=== PATIENT | female | born 2000 | race Caucasian/White ===

== ENCOUNTER 2022-10-27 19:28 | Outpatient (CLI) | payer SELFPAY ==
[~2022-10-27] VITALS: Ht 149.9 cm; Wt 65.5 kg
[~2022-10-27 19:28] MED LIST: PRENATAL TABLET PO
[2022-10-27 20:00] VITALS: BP 122/71; PULSE 101; TEMP 97.9
--- NOTE | 2022-10-27 20:00 | NUR ---
1934: Pt transported onto unit via wheelchair, accompanied by significant other. Pt oriented to LDR3 via unit mobile radiation therapy technician. Pt instructed to change into exam gown. 1942: Pt on external monitors x2. VS obtained. Unit mobile radiation therapy technician, Woody ID [id number], Kleverycmaggie agent utilized for communication. POC discussed and assessment obtained from pt. Pt denies vaginal bleeding. Pt states via radiation therapy technician, "I was leaking some clear fluids 8 days ago. It comes and goes. I have not had any sleep in 3 days because I feel pain in my abdomen and lower right side of my stomach." Pt states "I think I am having ctxs but I did not time them so I do not know how far apart they are, sorry." Amnioswab conducted, negative for ARMANI. 1955: SVE, with pt consent and explanation via unit mobile radiation therapy technician, C/H. This nurse noted that gloves and exam were absent of any fluids/discharge.
[2022-10-27 20:30] VITALS: BP 117/79; PULSE 106
[2022-10-27 21:00] VITALS: BP 106/77; PULSE 102
--- NOTE | 2022-10-27 21:00 | NUR ---
2037: Dr. Noel, notified, via phonecall of pt progress. See physician notification for further details. 2047: This nurse at pt bedside utilizing unit mobile career law clerk, Jose Francisco ID [id number]. POC discussed with pt. Dr. Noel has been made aware of pt progress. Tylenol, Tums/Pepcid, and Visteril offered. Pt endorses Tylenol and Visteril. Pt updated on POC. Pt verbalizes, via VoRukukue translater agent, understanding and agreement of POC. Questions, concerns, and needs encouraged. Pt denies questions, concerns, and needs. : Pt off external monitors x2, OOB ambulating to utilize bathroom. 2053: Pt back on external monitors x2. This nurse at pt bedside palpating pt abdomen, attempting to readjust external monitors x2.
[2022-10-27 21:16] LABS: COLLECTION METHOD CLEAN CATCH
[2022-10-27 21:26] LABS: URINE APPEARANCE Clear (CLEAR/HAZY); URINE BLOOD Negative (NEGATIVE); URINE COLOR Yellow (YELLOW); URINE GLUCOSE Negative (NEGATIVE); URINE KETONE Negative (NEGATIVE); URINE NITRATE Negative (NEGATIVE); URINE PROTEIN(semi-quant) Negative (NEGATIVE); URINE UROBILINOGEN 0.2 E.U/dL (0.2-1.0)
[2022-10-27 21:27] LABS: MUCOUS Present (NOT PRESENT); SQUAMOUS EPITHELIAL 0-2 /hpf (0-10); URINE BACTERIA Rare /hpf (NONE SEEN); URINE RBC None Seen /hpf (0-2); URINE WBC 0-2 /hpf (0-2)
[2022-10-27 21:30] VITALS: BP 105/77; PULSE 89
--- NOTE | 2022-10-27 21:30 | NUR ---
2113: This nurse at pt bedside, utilizing unit mobile colorer machine, Lars ID [id number]. Discussed medication with pt. Questions, concerns, needs encouraged. Pt denies questions, concerns, needs. Medication administered at 2117. Pain assessment obtained. Pt scored pain, on a numerical value scale, a "5" out of a 10. Pt describes pain location "in the same area in the right lower part of stomach and abdomen. It comes and goes." POC updated and discussed with pt. Pt verbalizes understanding and agreement of POC.
[2022-10-27 21:46] VITALS: BP 100/74; PULSE 86
--- NOTE | 2022-10-27 21:46 | NUR ---
2131: This nurse at pt bedside utilizing unit mobile information systems security specialist, Trinity ID [id number]. POC discussed with pt. Questions, concerns, and needs encouraged. Pt verbalizes understanding and agreement of POC, via unit mobile information systems security specialist Voyce agent. 2137: SVE, with pt consent and explanation via unit mobile information systems security specialist Voyce agent, C/T/H. 2140: This nurse notified Dr. Noel, via phonecall, of pt progress. See physician notification for further details. 2144: This nurse at pt bedside utilizing unit mobile information systems security specialist, Hernan ID [id number]. POC for DC discusssed with pt. 2145: Pt off external monitors, x2. Pt changed into civilian clothes. POC for DC discussed. Pt verbalizes understanding and agreement of POC for DC. 2213: This nurse at pt bedside utilizing unit mobile information systems security specialist, Mark Kerr ID [id number]. POC for DC discussed with pt. Education on early labor, discomforts of , and vaginal delivery discussed. Pt educated on spotting as a result of SVE from recent labor check visit. Pt also educated on abnormal bleeding and to return to the unit if vaginal bleeding, consistent and persistent ctx, and/or leaking/gushing of fluids occur. Pt educated on keeping all scheduled appointments and to take Tylenol/Benadryl for sleep/pain management PRN, per bottle instructions. Pt DC/health summary and packet handed to pt. Questions, concerns, and needs encouraged. Pt asked "when am I going to have my baby because I am having ctxs." Pt educated on early and active labor as well as what to look out for in signs of early/active labor. More comfort measures discussed with pt. Pt verbalizes understanding and agreement of DC POC with "no" additional questions, concerns, or needs. 2237: Pt ambulated off unit, accompanied by significant other, with DC paperwork and health summary in hand at 2237.
== END 2022-10-27 22:38 | disposition home or self-care (01) ==
LOC: LDRO 19:28
PROVIDERS: Obstetrics & Gynecology
DX: O62.4 Hypertonic, incoordinate, and prolonged uterine contractions (principal); Z3A.38 38 weeks gestation of pregnancy

== ENCOUNTER 2022-11-15 15:35 | Inpatient (IN) | payer SELFPAY ==
[~2022-11-15] VITALS: Ht 149.9 cm; Wt 65.5 kg
--- NOTE | 2022-11-15 18:35 | NUR ---
183- PT PRESENTS TO LDR FOR SCHEDULED INDUCTION OF LABOR WITH CYTOTEC, AMBULATORY TO ROOM LR5, CHANGED INTO GOWN. 1848- EFM X2 APPLIED. PT HAS SOME CONTRACTIONS, NO LEAKING, NO BLEEDING, MOVEMENT NOTED ON MONITOR. SEVERAL INTERPRETERS USED FOR ADMISSION PROCESS. THESE INCLUDE NICK([id number]), YURI([id number]), AND FALLON([id number]). 1919- DR DESAI CALLED CHARTED TO VERIFY INDUCTION ORDERS. 1934- IV SITE TO LEFT WRIST CHARTED, BLOOD DRAWN FOR LAB, LR BOLUS INFUSING. 1944- CONSENTS SIGNED WITH ELECTRIC MULE DRIVER. 1954- PT UP TO BATHROOM BEFORE CYTOTEC PLACEMENT. 1957- PT BACK TO BED AND ON MONITOR. PLAN OF CARE FOR CYTOTEC PROCESS EXPLAINED AND QUESTIONS ANSWERED. ELECTRIC MULE DRIVER USED. PT GIVES CONSENT FOR PROCESS. 1999- SVE BY THIS NURSE 0/0/-3, CYTOTEC PLACED. 2004- NURSING ADMISSION HISTORY AND PHYSICAL COMPLETED. ELECTRIC MULE DRIVER USED. 2009- PT ALREADY FEELS THOUGH HER CONTRACTIONS ARE WORSE. REASSURANCE PROVIDED.
[2022-11-15 19:00] VITALS: BP 124/80; PULSE 86; TEMP 97.6
[2022-11-15 19:35] LABS: BASO % 0.2 % (0.0-2.0); EOS # 0.1 K/mm3 (0.0-0.7); EOS % 0.8 % (0.0-4.0); GRAN # 4.9 K/mm3 (1.4-6.5); GRAN % 56.4 % (42.2-75.2); HEMOGLOBIN 10.9 g/dl (12.5-16.0); LYMPH # 2.9 K/mm3 (1.2-3.4); LYMPH % 33.6 % (20.0-51.0); MEAN CELL VOLUME 88 fl (80.0-100.0); MEAN CORPUSCULAR HEMOGLOBIN 29 pg (27-31); MEAN CORPUSCULAR HGB CONC 33 g/dl (33.0-37.0); MEAN PLATELET VOLUME 10.6 fl (7.4-10.4); MONO # 0.7 K/mm3 (0.1-0.6); MONO % 8.1 % (1.7-9.3); PLATELET COUNT 271 K/mm3 (130-400); REDCELL DISTRIBUTION WIDTH-CV 12.5 % (11.5-14.5)
[2022-11-15 19:38] LABS: HEMATOCRIT 33.3 % (37.0-47.0)
--- NOTE | 2022-11-15 20:30 | NUR ---
2029- LR IFUSION CONTINUED DUE TO INCREASED HEART RATE BASELINE. PT IN LEFT LATERAL POSITION AT THIS TIME. 2039- NURSE AT BEDSIDE. 2124- NURSE AT BEDSIDE, MONITORS ADJUSTED. PT RATES PAIN FROM CONTRACTIONS 03/06. 2134- NURSE AT BEDSIDE, MONITORS ADJUSTED. 2154- NURSE AT BEDSIDE, PULSE OX ON. 2217- PT UP TO BATHROOM, ABLE TO VOID WITHOUT DIFFICULTY. 2220- PT BACK TO BED, EFM ON. 0- PT MOVES TO LL POSITION FOR HER COMFORT.
[2022-11-15 21:00] VITALS: BP 109/65; PULSE 88
[2022-11-15 21:30] VITALS: BP 114/59; PULSE 89
[2022-11-15 22:00] VITALS: BP 102/59; PULSE 83
[2022-11-15 22:30] VITALS: BP 94/56; PULSE 83
--- NOTE | 2022-11-15 23:16 | NUR ---
2316- PT TURNED TO RIGHT TILT DUE TO HEART TONES. PILLOWS FOR COMFORT. 2348- DR DESAI CALLED AND UPDATED CHARTED, ORDERS RECEIVED. 2353- PT UP TO BATHROOM. 2355- PT BACK TO BED AND EFM APPLIED. 2358- DR DESAI CALLS BACK AND GIVES FURTHER ORDERS. 0008- PT UPDATED ON PLAN OF CARE FOR THE REST OF THE NIGHT REGARDING NO MORE INDUCTION MEDICATIONS UNTIL MORNING, MONITORING, FLUID HYDRATION, DIET, AND POSITION CHANGES. QUESTIONS ANSWERED. ADDICTIONS COUNSELOR USED, SHANITA([id number]). 0015- PT POSITIONED IN LEFT TILT WITH PILLOWS FOR COMFORT, CALL LIGHT IN REACH, LIGHTS TURNED DOWN.
[2022-11-16] VITALS (43 sets, daily range): BP systolic 96–148; BP diastolic 53–96; PULSE 71–110; TEMP 97.3–98.4
--- NOTE | 2022-11-16 01:00 | NUR ---
0100- PT RESTING BUT NOT ASLEEP, DENIES NEEDS AT THIS TIME.
--- NOTE | 2022-11-16 02:00 | NUR ---
0200- PT RESTING QUIETLY WITH EYES CLOSED. 0232- PT UP TO BATHROOM, ABLE TO VOID WITHOUT DIFFICULTY.
--- NOTE | 2022-11-16 02:38 | NUR ---
0238- PT BACK TO BED, EFM APPLIED. PT DENIES FURTHER NEEDS AT THIS TIME. 0330- PT RESTING QUIETLY. 0420- PT RESTING QUIETLY. VITALS STABLE. PT DENIES FURTHER NEEDS AT THIS TIME.
--- NOTE | 2022-11-16 05:47 | NUR ---
0547- PT REPORTS INCREASED PAIN AT THIS TIME. PT UP TO BATHROOM AND ABLE TO VOID. 0550- PT BACK TO BED, EFM APPLIED. SVE BY THIS NURSE 0-/-3. UNABLE TO START PITOCIN AT THIS TIME DUE TO NONREACTIVE STRIP.
--- NOTE | 2022-11-16 07:10 | NUR ---
PT UP TO RESTROOM TO VOID. OFF MONITORS. DANICA WITH ANESTHESIA NOTIFIED OF EPIDURAL REQUEST.
--- NOTE | 2022-11-16 07:35 | NUR ---
DANIELA MISHRA AT BEDSIDE TO PERFORM EPIDURAL PLACEMENT. PT IS SITTING UP ON THE SIDE OF THE BED. EFM DIFFICULT TO TRACE D/T PATIENT POSITIONING. 0735: SINGLE SHOT ADMINISTERED PER DANIELA MISHRA. PT TOLERATING PROCEDURE. VSS.
[2022-11-16 09:16] LABS: TRICYCLIC ANTIDEPRESS URINE NEGATIVE
--- NOTE | 2022-11-16 12:40 | NUR ---
AT BEDSIDE, SVE UNCHANGED, /-2. INTOLERANCE TO LABOR WHILE PITOCIN IS INFSUSING. PITOCIN CURRENTLY OFF. VIA INTERPRETOR SERVICE, AND PT DECIDE TO MOVE FORWARD WITH SECTION FOR INTOLERANCE TO LABOR. SPOUSE AT BEDSIDE AND SUPPORTIVE. ALL APPROPRIATE STAFF NOTIFIED. PT TO OR FOLLOWING PRE-OP PREP. 1316: CSECTION DELIVERY OF VIABLE FEMALE PER . STRONG CRY NOTED AT DELIVERY. CARE OF ASSUMED BY NELLI GOMEZ. PT TOLERATING PROCEDURE WELL. PROFESSIONAL INTERPRETOR USED THROUGHOUT SURGERY.
--- NOTE | 2022-11-16 19:00 | NUR ---
THIS NURSE IN TO MOTHER'S ROOM TO EDUCATE MOTHER ON PLAN OF CARE FOR THE EVENING VIA STOKER ERECTOR. MOTHER VERBALIZED UNDERSTANDING AND QUESTIONS ANSWERED.
--- NOTE | 2022-11-16 21:50 | NUR ---
MOTHER UP OOB AND TO BATHROOM WITH THE ASSISTANCE OF THIS NURSE AND SUPPORT PERSON IN THE ROOM. STEADY GAIT NOTED. BLACKWELL CATHETER REMOVED. NESTOR CARE AND CLEAN GOWN PROVIDED TO PATIENT. EPIDURAL STILL IN PATIENT'S BACK AT THIS TIME. TAPE REMOVED AND EPIDURAL REMVOED BY THIS RN. BLUE TIP INTACT. BANDAID PLACED OVER SITE. MOTHER AMBULATED STEADILY BACK TO BED. MOTHER RESTING AT THIS TIME.
[2022-11-17] VITALS: BP 113/62; PULSE 102; TEMP 98.3
[2022-11-17 04:15] VITALS: BP 110/72; PULSE 98; TEMP 97.9
[2022-11-17 08:00] VITALS: BP 128/68; PULSE 88; TEMP 97.8
--- NOTE | 2022-11-17 09:08 | NUR ---
Initial visit attempt; Family watching film, Racing Board Marker left card offering congratulations and God's blessings for the of their daughter along with information regarding the availability of Spiritual Care at [facility].
[2022-11-17] MEDS ORDERED: IBU600 MG PO (09:24)
[2022-11-17] MEDS ORDERED: ROXICODONE 55 MG/TAB PO (09:24)
--- NOTE | 2022-11-17 14:46 | NUR ---
Assembler [employer] Head utilized sales vice president services with sales vice president # [phone] to communicate to the Patient in Belarusian. Assembler [employer] Wood [employer] met with Patient in order to conduct Care Managment Assessment and discuss social concerns. Patient and her [place] [facility] in June of 2022 with temporary approval to work in the country. Patient has late care due to the [place] to the [place] Patient reports to live in [place], [place] with her partner and two other roommates. Patient has a carseat but no other equipment for the child. Assembler Golf Wood Head provided the Patient with [facility] resource guide and briefed them that there are resource agencies on the list that will potentially help with equipment needs. SW attempted to contact [facility] [employer] office to ensure communication and resource managment was provided to Patient and her family. There was no answer, GITA left a voicemail requesting callback.
[2022-11-17 17:14] VITALS: BP 118/68; PULSE 85; TEMP 97.8
[2022-11-17 20:30] VITALS: BP 117/70; PULSE 89; TEMP 97.5
[2022-11-18 07:00] VITALS: BP 117/74; PULSE 99; TEMP 98.2
--- NOTE | 2022-11-18 09:54 | NUR ---
Late Entry for 11-17-22 Human Resources Benefits Manager collaborated with Nursing staff to address positive illicit substances for cord blood on of child. Due to Patient being negative for substances as well as the timing of birthing medications, there is no concern for illicit substance use during .
--- NOTE | 2022-11-23 16:02 | NUR ---
Financial Market Dealer was made aware that Patient did not attend 10-day check up for her child on the 21 of November. SW attempted to contact Patient to review potential barriers such as transportation. Financial Market Dealer attempted to contact Patient by phone utilizing coil strapper services, coil strapper #[id number]. Patient did not answer, voicemail was not established. SW will follow.
== END 2022-11-18 14:49 | disposition home or self-care (01) | DRG 788 ==
LOC: OB 15:35 → LDR 18:30 → OB 11-16 13:00
PROVIDERS: ADMIT Obstetrics & Gynecology
PROC: 3E0P7VZ Introduction of Hormone into Female Reproductive, Via Natural or Artificial Opening (ICD-10-PCS; 2022-11-15)
PROC: 10D00Z1 Extraction of Products of Conception, Low, Open Approach (ICD-10-PCS; principal; 2022-11-16)
PROC: 3E033VJ Introduction of Other Hormone into Peripheral Vein, Percutaneous Approach (ICD-10-PCS; 2022-11-16)
DX: O48.0 Post-term pregnancy (principal); Z37.0 Single live birth; O62.0 Primary inadequate contractions; O76 Abnormality in fetal heart rate and rhythm complicating labor and delivery; O99.344 Other mental disorders complicating childbirth; F32.A Depression, unspecified; Z3A.40 40 weeks gestation of pregnancy
CPT/HCPCS: J0690; J1100; J1885; J2401; J2405; J2590; J7120

== ENCOUNTER 2022-12-15 23:29 | Emergency (ER) | payer SELFPAY ==
[~2022-12-15] VITALS: Ht 165.1 cm; Wt 59.5 kg
[~2022-12-15 23:29] MED LIST changes: +IBU600 MG PO; +ROXICODONE 55 MG/TAB PO
[2022-12-15 23:35] VITALS: TEMP 97.7
[2022-12-15 23:55] LABS: BASO % 0.5 % (0.0-2.0); EOS # 0.2 K/mm3 (0.0-0.7); EOS % 2.3 % (0.0-4.0); GRAN # 2.9 K/mm3 (1.4-6.5); GRAN % 38.7 % (42.2-75.2); HEMOGLOBIN 11.6 g/dl (12.5-16.0); LYMPH # 3.9 K/mm3 (1.2-3.4); LYMPH % 51.8 % (20.0-51.0); MEAN CELL VOLUME 87 fl (80.0-100.0); MEAN CORPUSCULAR HEMOGLOBIN 29 pg (27-31); MEAN CORPUSCULAR HGB CONC 33 g/dl (33.0-37.0); MEAN PLATELET VOLUME 9.5 fl (7.4-10.4); MONO # 0.5 K/mm3 (0.1-0.6); MONO % 6.4 % (1.7-9.3); PLATELET COUNT 287 K/mm3 (130-400); RED BLOOD COUNT 4.05 M/mm3 (4.10-5.30); REDCELL DISTRIBUTION WIDTH-CV 13.3 % (11.5-14.5)
[2022-12-15 23:58] LABS: PROTHROMBIN TIME 10.9 SECONDS (9.7-12.8)
[2022-12-16] LABS: PARTIAL THROMBOPLASTIN TIME 30.3 SECONDS (26.0-37.0)
[2022-12-16 00:03] LABS: HEMATOCRIT 35.2 % (37.0-47.0)
[2022-12-16 00:11] LABS: COLLECTION METHOD CLEAN CATCH
[2022-12-16 00:15] LABS: URINE APPEARANCE Turbid (CLEAR/HAZY); URINE COLOR Yellow (YELLOW)
[2022-12-16 00:16] LABS: ALBUMIN 3.9 gm/dL (3.5-5.0); BILIRUBIN,TOTAL 0.3 mg/dL (0.2-1.2); CALCIUM 9.4 mg/dL (8.4-10.2); CREATININE, serum 0.67 mg/dL (0.57-1.11); MAGNESIUM 1.9 mg/dL (1.6-2.6); PHOSPHOROUS 4.6 mg/dL (2.3-4.7); POTASSIUM 3.3 mmol/L (3.5-4.5); TOTAL PROTEIN 7.7 gm/dL (6.2-8.1)
[2022-12-16 00:16] LABS: PH 5.5 (5.0-8.5); URINE BLOOD 3+ (NEGATIVE); URINE GLUCOSE Negative (NEGATIVE); URINE KETONE Negative (NEGATIVE); URINE NITRATE Negative (NEGATIVE); URINE PROTEIN(semi-quant) Negative (NEGATIVE)
[2022-12-16 00:17] LABS: URINE BACTERIA None Seen /hpf (NONE SEEN); URINE RBC >50 /hpf (0-2)
[2022-12-16] MEDS ORDERED: REGLAN 10MG10 MG/TAB PO (02:05)
[2022-12-16] MEDS ORDERED: CEPHALEXIN500 M1 PO (02:08)
[2022-12-16 02:33] VITALS: BP 116/80; PULSE 97
== END 2022-12-16 02:33 | disposition home or self-care (01) ==
LOC: COL.ER 23:29
PROVIDERS: Emergency Medicine
DX: O90.89 Other complications of the puerperium, not elsewhere classified (principal); R10.13 Epigastric pain; O86.20 Urinary tract infection following delivery, unspecified; N39.0 Urinary tract infection, site not specified; Z28.310 Unvaccinated for COVID-19
CPT/HCPCS: J0696; J2270; J2405; J2765; Q9967